=== PATIENT | male | born 2000 | race Two or more races ===

== ENCOUNTER 2024-02-03 11:40 | Emergency (ER) | payer MEDICAID, OTHER ==
[~2024-02-03] VITALS: Ht 175.3 cm; Wt 59.0 kg
[2024-02-03 13:17] VITALS: BP 104/72; PULSE 104; RESP 18; TEMP 97.6; O2SAT 96
[2024-02-03] MEDS: ACETAMINOPHEN 500 MG TAB PO ONE (13:33)
[2024-02-03] MEDS ORDERED: BACL10TA PO (13:47)
[2024-02-03] MEDS ORDERED: NAPR-746 PO (13:47)
== END 2024-02-03 14:02 | disposition home or self-care (01) ==
LOC: ER 11:47
DX: S46.811A Strain of other muscles, fascia and tendons at shoulder and upper arm level, right arm, initial encounter (principal); G44.209 Tension-type headache, unspecified, not intractable; Z79.899 Other long term (current) drug therapy; V89.2XXA Person injured in unspecified motor-vehicle accident, traffic, initial encounter; Y93.89 Activity, other specified; Y92.89 Other specified places as the place of occurrence of the external cause; Y99.8 Other external cause status
CPT/HCPCS: 70450; 73030